=== PATIENT | male | born 1970 | race African-American/Black ===

== ENCOUNTER 2017-10-15 14:58 | Emergency (ER) | payer OTHER ==
[2017-10-15] MEDS: IBUPROFEN 800 MG TABLET. PO ×2 (15:45)
== END 2017-10-15 16:18 | disposition home or self-care (01) ==
LOC: ER 14:58
DX: S52.202A Unspecified fracture of shaft of left ulna, initial encounter for closed fracture (principal); W19.XXXA Unspecified fall, initial encounter; Y93.61 Activity, american tackle football; Y92.321 Football field as the place of occurrence of the external cause; Y99.8 Other external cause status
CPT/HCPCS: 29125; 73090; 73110; 99284-25

== ENCOUNTER 2019-01-28 10:21 | Inpatient (IN) | payer OTHER, SELFPAY ==
[~2019-01-28] VITALS: Ht 182.9 cm; Wt 78.0 kg
[2019-01-28] VITALS (7 sets, daily range): BP systolic 110–129; BP diastolic 44–76
[~2019-01-28 10:21] MED LIST: HYDR-3164 PO
[2019-01-28] MEDS ORDERED: DIPHTH,PERTUSS(ACELL),TET TOX 0.5 ML DISP.SYRIN. VAX IM ONE (11:15)
--- NOTE | 2019-01-28 11:34 | RAD ---
2 views left tibia-fibula dated 01/28/2019. No comparison available. CLINICAL INDICATION: Pain after nail gun injury. FINDINGS: 2 views left tibia fibula show a 7.2 cm nail embedded within the distal one third shaft of the tibia. One of the stabilizing brads is fractured from the proximal end of the nail and displaced medially into the soft tissues. Distal fibula is intact. No displaced fracture. Impression: 7 cm nail embedded in the distal tibial shaft as described above. Electronically signed by: Evens Archer MD (01/28/2019 11:31 AM) [facility]
[2019-01-28] MEDS ORDERED: ONDANSETRON PF 4 MG/2 ML VIAL. IV PRN ×3 (12:45→18:15)
[2019-01-28] MEDS ORDERED: PIPERACILLIN/TAZOBACTAM 3.375 GM in IV NORMAL SALINE 50ML 50 ML IV ONE (13:00)
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
[2019-01-28] MEDS ORDERED: IV RINGERS,LACTATED 1000ML 1,000 ML IV SCH (13:05)
[2019-01-28] MEDS: MORPHINE SULFATE 4 MG/ML VIAL. IV PRN ×2 (13:09→15:09)
[2019-01-28] MEDS ORDERED: MORPHINE SULFATE 2 MG/ML VIAL. IV PRN ×2 (13:15→18:15)
[2019-01-28] MEDS ORDERED: fentaNYL PF VIAL 100 MCG/2 ML VIAL IV PRN ×3 (13:15→18:15)
[2019-01-28] MEDS ORDERED: HYDROmorphone 2 MG/ML VIAL IV PRN (13:15)
[2019-01-28] MEDS ORDERED: PROCHLORPERAZINE 10 MG/2 ML VIAL. IV PRN (13:15)
[2019-01-28 13:16] LABS: BASO # 0.1 x10^3/uL (0.0-0.2); BASO % 1 % (0-3); EOS # 0.2 x10^3/uL (0.0-0.7); EOS % 3 % (0-3); HEMATOCRIT 48.5 % (39.0-53.0); HEMOGLOBIN 16.3 g/dL (13.0-17.5); LYMPH # 1.6 x10^3/uL (1.0-4.8); LYMPH % 27 % (24-48); MEAN CORPUSCULAR HEMOGLOBIN 32 pg (25-35); MEAN CORPUSCULAR HGB CONC 34 g/dL (31-37); MEAN CORPUSCULAR VOLUME 95 fL (79-100); MONO # 0.6 x10^3/uL (0.0-1.1); MONO % 11 % (0-9); NEUT # 3.3 x10^3uL (1.8-7.7); NEUT % 58 % (31-73); PLATELET COUNT 226 x10^3/uL (140-400); RED BLOOD COUNT 5.11 x10^6/uL (4.30-5.70); RED CELL DISTRIBUTION WIDTH 13.8 % (11.5-14.5); WHITE BLOOD COUNT 5.8 x10^3/uL (4.0-11.0)
[2019-01-28 13:28] LABS: CALCIUM 9.3 mg/dL (8.5-10.1); CREATININE 1.2 mg/dL (0.7-1.3); GFR 77.2
[2019-01-28 13:31] LABS: PROTHROMBIN TIME PATIENT 12.5 SEC (11.7-14.0)
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
[2019-01-28] MEDS ORDERED: BUPIVACAINE-EPI 0.25%-1:200000 MPF 30 ML VIAL. ONE (16:33)
[2019-01-28] MEDS ORDERED: fentaNYL PF VIAL 100 MCG/2 ML VIAL ONE ×2 (16:42→18:08)
[2019-01-28] MEDS ORDERED: PROPOFOL 20 ML IV ONE (16:43)
[2019-01-28] MEDS ORDERED: ONDANSETRON PF 4 MG/2 ML VIAL. ONE (16:43)
[2019-01-28] MEDS ORDERED: MIDAZOLAM HCL/PF 2 MG/2 ML VIAL. ONE (16:43)
[2019-01-28] MEDS ORDERED: LIDOCAINE 2% PF 5 ML VIAL. ONE (16:43)
[2019-01-28] MEDS ORDERED: DEXAMETHASONE SOD PHOS 4 MG/ML VIAL ONE (16:43)
[2019-01-28] MEDS ORDERED: ceFAZolin 1GM IVPB FOR OMNI 100 ML IV ONE (16:51)
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
--- NOTE | 2019-01-28 18:08 | PDOC4 ---
Operative Note Operative Note Date of Procedure: January 28, 2019 Pre-Op Diagnosis: Puncture wound with foreign body, left lower leg, initial encounter S81.842A Contact with nail gun, initial encounter, W29.4XXA Unspecified fracture of shaft of left tibia, initial encounter for open fracture, type 1, S82.202B Post-Op Diagnosis: Puncture wound with foreign body, left lower leg, initial encounter S81.842A Unspecified fracture of shaft of left tibia, initial encounter for open fracture, type 1, S82.202B Contact with nail gun, initial encounter, W29.4XXA Procedure: Removal of foreign body, deep, lower leg, CPT 72391 Debridement including removal of foreign material at the site of an open fracture, excisional debridement skin and subcutaneous tissues, CPT 00122 Surgeon: Sally Estevez MD Anesthesia: General EBL: 5 mL Specimens Obtained: none Complications: none Drains: none Tourniquet time: 17 minutes Indications for Procedure: The patient is a 49-year-old man who injured his leg with a nail gun. The nail is deeply embedded in the lower leg, and is no longer visible but there puncture wounds at the entrance and at the tip of the nail where it briefly exited the skin and then retracted beneath the skin. The patient and I discussed the risks, benefits and alternatives of surgery. Procedure in Detail: The patient was identified in the preoperative holding area. The patient was taken to the operating room where general anesthesia was used. The patient was positioned supine on the operating table. Preoperative antibiotics were given intravenously, 2 g of Ancef. He previously received tetanus prophylaxis. A timeout procedure was performed. A tourniquet was applied to the upper limb. The limb was prepared in sterile fashion with surgical prep solution. Sterile drapes were applied. An Esmarch bandage was used to exsanguinate the limb and the tourniquet was inflated to 350 mmHg. The exit wound on the injured tibia was addressed first. A 3 cm longitudinal incision was made. The tibialis anterior tendon was gently retracted. The tip of the nail was palpable and exposed with a hemostat. Betadine was used for the initial lavage, and I lavaged the nail head and the tibia where it is fractured. I then used the [employer] interpulse petrologist and irrigated saline copiously. Next the leg was rolled internally, and the posterior entrance wound was noted. This is along the lateral aspect of the gastrocnemius muscle at the musculotendinous junction. A 6 cm longitudinal incision was made incorporating the puncture wound. Careful dissection was used. The sural nerve was 2 mm from the nail head. I needed to retract the nerve carefully with a Weitlaner retractor, in order to remove the nail. Again I used Betadine lavage followed by the Jasmin interpulse petrologist. I then used a vise geophysical laboratory chief and slap hammer under direct vision, grasped the tip of the nail, and removed it with the slap hammer without difficulty. I then again lavaged the anterior and posterior incisions with Betadine and then followed with the [place] interpulse petrologist and saline. The additional dissection required to remove the single small yolanda remaining deep in the tissues does not seem worthwhile because of the risk of nerve or artery injury with that additional dissection. I did excisional debridement along the edges of entrance and exit wounds of the skin and subcutaneous tissue. After final irrigation, I closed the incisions loosely with a single 2-0 Vicryl suture in the posterior incision. The skin was loosely reapproximated anteriorly and posteriorly with 3-0 Prolene interrupted simple sutures. Bupivacaine 0.25% with epinephrine was injected into the skin edges. Xeroform and sterile dressings were applied. The tourniquet was released. There were no apparent complications. The patient returned to the recovery room in stable condition. I recommend a Cam Walker and limited activity to prevent complete fracture of the tibia. He may weight-bear in the Cam Walker but should use it for 4-6 weeks. SALLY ESTEVEZ MD January 28, 2019 18:08
[2019-01-28] MEDS ORDERED: POLYETHYLENE GLYCOL 3350 17 GM PACKET. PO PRN (18:15)
[2019-01-28] MEDS ORDERED: oxyCODONE/APAP 5/325 1 TAB TABLET PO PRN ×2 (18:15→18:30)
[2019-01-28] MEDS ORDERED: DEXTROSE 50% 25 GM / 50ML DISP.SYRIN. IV PRN (18:15)
[2019-01-28] MEDS ORDERED: MORPHINE SULFATE 4 MG/ML VIAL. IV PRN (18:15)
[2019-01-28] MEDS ORDERED: oxyCODONE IR 5 MG TABLET PO PRN (18:15)
[2019-01-28] MEDS ORDERED: HYDROcodone/APAP 7.5/325MG 1 TAB TABLET PO PRN ×2 (18:15)
[2019-01-28] MEDS: IV 1/2 NORMAL SALINE 1,000 ML IV SCH (18:30)
[2019-01-29 03:22] VITALS: BP 103/66
[2019-01-29] MEDS ORDERED: MAGNESIUM HYDROXIDE 2,400 MG/30 ML ORAL.SUSP. PO PRN (06:00)
[2019-01-29 07:00] VITALS: BP 113/72
[2019-01-29 07:18] LABS: BASO # 0.1 x10^3/uL (0.0-0.2); BASO % 1 % (0-3); EOS % 0 % (0-3); HEMATOCRIT 48.6 % (39.0-53.0); HEMOGLOBIN 16.4 g/dL (13.0-17.5); LYMPH # 1.7 x10^3/uL (1.0-4.8); LYMPH % 17 % (24-48); MEAN CORPUSCULAR HEMOGLOBIN 32 pg (25-35); MEAN CORPUSCULAR HGB CONC 34 g/dL (31-37); MEAN CORPUSCULAR VOLUME 96 fL (79-100); MONO # 0.9 x10^3/uL (0.0-1.1); MONO % 9 % (0-9); NEUT # 7.4 x10^3uL (1.8-7.7); NEUT % 73 % (31-73); PLATELET COUNT 226 x10^3/uL (140-400); RED BLOOD COUNT 5.06 x10^6/uL (4.30-5.70)
[2019-01-29 07:37] LABS: CALCIUM 8.8 mg/dL (8.5-10.1); CREATININE 1.2 mg/dL (0.7-1.3); GFR 77.2; POTASSIUM 4.1 mmol/L (3.5-5.1)
[2019-01-29] MEDS: IV 1/2 NORMAL SALINE 1,000 ML IV SCH (07:47)
[2019-01-29] MEDS ORDERED: ASPIRIN 325 MG TABLET PO SCH (08:00)
--- NOTE | 2019-01-29 08:49 | PDOC ---
PROGRESS NOTES Chief Complaint Chief Complaint Puncture wound of left leg - s/p tetanus vaccine, would recommend coverage for strep and staph for 5-7 days, pain control as well. 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 To OR 01/28/[address] Estevez to have 7cm nail removed from distal shaft of left femur. Vitals Vitals Vital Signs Date Time Temp Pulse Resp B/P (MAP) Pulse Ox O2 Delivery O2 Flow Rate FiO2 01/29/19 08:16 Room Air 01/29/19 07:00 97.7 63 18 113/72 (86) 97 97.7 Physical Exam General: Alert, Cooperative Heart: Regular rate Abdomen: Soft Extremities: Other (He has a small puncture wound posteriorly that is the entrance wound, about the size of the head of the nail, and an even smaller puncture wound anteriorly, both of which have trace bleeding but there is no visible nail at this time. He does not report any tingling numbness or loss of function distally, his only complaint is some muscle tightness when he tries to move his ankle. He has an intact dorsalis pedis pulse. The light touch sensation is intact. He can dorsiflex and plantarflex the foot slightly, with no evidence of compartment syndrome or of significant neurovascular injury. There is no pulsatile bleeding. There is trace amount of bleeding from the anterior wound on the distal tibia, and from the posterior wound, along the lateral aspect of the gastrocsoleus. There is no compartment syndrome.) Labs LABS Laboratory Tests Test 01/28/19 13:01 01/29/19 06:35 White Blood Count 5.8 x10^3/uL (4.0-11.0) 10.0 x10^3/uL (4.0-11.0) Red Blood Count 5.11 x10^6/uL (4.30-5.70) 5.06 x10^6/uL (4.30-5.70) Hemoglobin 16.3 g/dL (13.0-17.5) 16.4 g/dL (13.0-17.5) Hematocrit 48.5 % (39.0-53.0) 48.6 % (39.0-53.0) Mean Corpuscular Volume 95 fL (79-100) 96 fL (79-100) Mean Corpuscular Hemoglobin 32 pg (25-35) 32 pg (25-35) Mean Corpuscular Hemoglobin Concent 34 g/dL (31-37) 34 g/dL (31-37) Red Cell Distribution Width 13.8 % (11.5-14.5) 14.0 % (11.5-14.5) Platelet Count 226 x10^3/uL (140-400) 226 x10^3/uL (140-400) Neutrophils (%) (Auto) 58 % (31-73) 73 % (31-73) Lymphocytes (%) (Auto) 27 % (24-48) 17 % (24-48) Monocytes (%) (Auto) 11 % (0-9) 9 % (0-9) Eosinophils (%) (Auto) 3 % (0-3) 0 % (0-3) Basophils (%) (Auto) 1 % (0-3) 1 % (0-3) Neutrophils # (Auto) 3.3 x10^3uL (1.8-7.7) 7.4 x10^3uL (1.8-7.7) Lymphocytes # (Auto) 1.6 x10^3/uL (1.0-4.8) 1.7 x10^3/uL (1.0-4.8) Monocytes # (Auto) 0.6 x10^3/uL (0.0-1.1) 0.9 x10^3/uL (0.0-1.1) Eosinophils # (Auto) 0.2 x10^3/uL (0.0-0.7) 0.0 x10^3/uL (0.0-0.7) Basophils # (Auto) 0.1 x10^3/uL (0.0-0.2) 0.1 x10^3/uL (0.0-0.2) Prothrombin Time 12.5 SEC (11.7-14.0) Prothromb Time International Ratio 1.0 (0.8-1.1) Activated Partial Thromboplast Time 25 SEC (24-38) Sodium Level 141 mmol/L (136-145) 137 mmol/L (136-145) Potassium Level 5.0 mmol/L (3.5-5.1) 4.1 mmol/L (3.5-5.1) Chloride Level 104 mmol/L (98-107) 101 mmol/L (98-107) Carbon Dioxide Level 28 mmol/L (21-32) 27 mmol/L (21-32) Anion Gap 9 (6-14) 9 (6-14) Blood Urea Nitrogen 13 mg/dL (8-26) 10 mg/dL (8-26) Creatinine 1.2 mg/dL (0.7-1.3) 1.2 mg/dL (0.7-1.3) Estimated GFR (Cockcroft-Gault) 77.2 77.2 Glucose Level 99 mg/dL (70-99) 105 mg/dL (70-99) Calcium Level 9.3 mg/dL (8.5-10.1) 8.8 mg/dL (8.5-10.1) Assessment and Plan Assessmemt and Plan Problems Medical Problems: (1) Left tibial fracture Status: Acute (2) Puncture wound of left lower leg Status: Acute Comment Review of Relevant I have reviewed the following items deisi (where applicable) has been applied. Labs Laboratory Tests Test 01/28/19 13:01 01/29/19 06:35 White Blood Count 5.8 x10^3/uL (4.0-11.0) 10.0 x10^3/uL (4.0-11.0) Red Blood Count 5.11 x10^6/uL (4.30-5.70) 5.06 x10^6/uL (4.30-5.70) Hemoglobin 16.3 g/dL (13.0-17.5) 16.4 g/dL (13.0-17.5) Hematocrit 48.5 % (39.0-53.0) 48.6 % (39.0-53.0) Mean Corpuscular Volume 95 fL (79-100) 96 fL (79-100) Mean Corpuscular Hemoglobin 32 pg (25-35) 32 pg (25-35) Mean Corpuscular Hemoglobin Concent 34 g/dL (31-37) 34 g/dL (31-37) Red Cell Distribution Width 13.8 % (11.5-14.5) 14.0 % (11.5-14.5) Platelet Count 226 x10^3/uL (140-400) 226 x10^3/uL (140-400) Neutrophils (%) (Auto) 58 % (31-73) 73 % (31-73) Lymphocytes (%) (Auto) 27 % (24-48) 17 % (24-48) Monocytes (%) (Auto) 11 % (0-9) 9 % (0-9) Eosinophils (%) (Auto) 3 % (0-3) 0 % (0-3) Basophils (%) (Auto) 1 % (0-3) 1 % (0-3) Neutrophils # (Auto) 3.3 x10^3uL (1.8-7.7) 7.4 x10^3uL (1.8-7.7) Lymphocytes # (Auto) 1.6 x10^3/uL (1.0-4.8) 1.7 x10^3/uL (1.0-4.8) Monocytes # (Auto) 0.6 x10^3/uL (0.0-1.1) 0.9 x10^3/uL (0.0-1.1) Eosinophils # (Auto) 0.2 x10^3/uL (0.0-0.7) 0.0 x10^3/uL (0.0-0.7) Basophils # (Auto) 0.1 x10^3/uL (0.0-0.2) 0.1 x10^3/uL (0.0-0.2) Prothrombin Time 12.5 SEC (11.7-14.0) Prothromb Time International Ratio 1.0 (0.8-1.1) Activated Partial Thromboplast Time 25 SEC (24-38) Sodium Level 141 mmol/L (136-145) 137 mmol/L (136-145) Potassium Level 5.0 mmol/L (3.5-5.1) 4.1 mmol/L (3.5-5.1) Chloride Level 104 mmol/L (98-107) 101 mmol/L (98-107) Carbon Dioxide Level 28 mmol/L (21-32) 27 mmol/L (21-32) Anion Gap 9 (6-14) 9 (6-14) Blood Urea Nitrogen 13 mg/dL (8-26) 10 mg/dL (8-26) Creatinine 1.2 mg/dL (0.7-1.3) 1.2 mg/dL (0.7-1.3) Estimated GFR (Cockcroft-Gault) 77.2 77.2 Glucose Level 99 mg/dL (70-99) 105 mg/dL (70-99) Calcium Level 9.3 mg/dL (8.5-10.1) 8.8 mg/dL (8.5-10.1) Laboratory Tests Test 01/28/19 13:01 01/29/19 06:35 White Blood Count 5.8 x10^3/uL (4.0-11.0) 10.0 x10^3/uL (4.0-11.0) Red Blood Count 5.11 x10^6/uL (4.30-5.70) 5.06 x10^6/uL (4.30-5.70) Hemoglobin 16.3 g/dL (13.0-17.5) 16.4 g/dL (13.0-17.5) Hematocrit 48.5 % (39.0-53.0) 48.6 % (39.0-53.0) Mean Corpuscular Volume 95 fL (79-100) 96 fL (79-100) Mean Corpuscular Hemoglobin 32 pg (25-35) 32 pg (25-35) Mean Corpuscular Hemoglobin Concent 34 g/dL (31-37) 34 g/dL (31-37) Red Cell Distribution Width 13.8 % (11.5-14.5) 14.0 % (11.5-14.5) Platelet Count 226 x10^3/uL (140-400) 226 x10^3/uL (140-400) Neutrophils (%) (Auto) 58 % (31-73) 73 % (31-73) Lymphocytes (%) (Auto) 27 % (24-48) 17 % (24-48) Monocytes (%) (Auto) 11 % (0-9) 9 % (0-9) Eosinophils (%) (Auto) 3 % (0-3) 0 % (0-3) Basophils (%) (Auto) 1 % (0-3) 1 % (0-3) Neutrophils # (Auto) 3.3 x10^3uL (1.8-7.7) 7.4 x10^3uL (1.8-7.7) Lymphocytes # (Auto) 1.6 x10^3/uL (1.0-4.8) 1.7 x10^3/uL (1.0-4.8) Monocytes # (Auto) 0.6 x10^3/uL (0.0-1.1) 0.9 x10^3/uL (0.0-1.1) Eosinophils # (Auto) 0.2 x10^3/uL (0.0-0.7) 0.0 x10^3/uL (0.0-0.7) Basophils # (Auto) 0.1 x10^3/uL (0.0-0.2) 0.1 x10^3/uL (0.0-0.2) Prothrombin Time 12.5 SEC (11.7-14.0) Prothromb Time International Ratio 1.0 (0.8-1.1) Activated Partial Thromboplast Time 25 SEC (24-38) Sodium Level 141 mmol/L (136-145) 137 mmol/L (136-145) Potassium Level 5.0 mmol/L (3.5-5.1) 4.1 mmol/L (3.5-5.1) Chloride Level 104 mmol/L (98-107) 101 mmol/L (98-107) Carbon Dioxide Level 28 mmol/L (21-32) 27 mmol/L (21-32) Anion Gap 9 (6-14) 9 (6-14) Blood Urea Nitrogen 13 mg/dL (8-26) 10 mg/dL (8-26) Creatinine 1.2 mg/dL (0.7-1.3) 1.2 mg/dL (0.7-1.3) Estimated GFR (Cockcroft-Gault) 77.2 77.2 Glucose Level 99 mg/dL (70-99) 105 mg/dL (70-99) Calcium Level 9.3 mg/dL (8.5-10.1) 8.8 mg/dL (8.5-10.1) Medications Current Medications Diphtheria/ Tetanus/Acell Pertussis (Boostrix) 0.5 ml ONCE ONCE VAX IM Last administered on 01/28/19at 11:35; Start 01/28/19 at 11:15; Stop 01/28/19 at 11:16; Status DC Piperacillin Sod/ Tazobactam Sod 3.375 gm/Sodium Chloride 50 ml @ 100 mls/hr 1X ONCE IV Last administered on 01/28/19at 13:10; Start 01/28/19 at 13:00; Stop 01/28/19 at 13:29; Status DC Ondansetron HCl (Zofran) 4 mg PRN Q8HRS PRN IV NAUSEA/VOMITING Last administered on 01/28/19at 13:09; Start 01/28/19 at 12:45; Stop 01/29/19 at 12:44 Morphine Sulfate (Morphine Sulfate) 4 mg PRN Q2HR PRN IV PAIN Last administered on 01/28/19at 15:09; Start 01/28/19 at 12:45; Stop 01/29/19 at 12:44 Ondansetron HCl (Zofran) 4 mg PRN Q6HRS PRN IV NAUSEA/VOMITING; Start 01/28/19 at 13:15; Stop 01/29/19 at 13:14 Fentanyl Citrate (Fentanyl 2ml Vial) 25 mcg PRN Q5MIN PRN IV MILD PAIN 1-3; Start 01/28/19 at 13:15; Stop 01/29/19 at 13:14 Fentanyl Citrate (Fentanyl 2ml Vial) 50 mcg PRN Q5MIN PRN IV MODERATE TO SEVERE PAIN Last administered on 01/28/19at 18:10; Start 01/28/19 at 13:15; Stop 01/29/19 at 13:14 Morphine Sulfate (Morphine Sulfate) 1 mg PRN Q10MIN PRN IV SEVERE PAIN 7-10; Start 01/28/19 at 13:15; Stop 01/29/19 at 13:14 Ringer's Solution 1,000 ml @ 30 mls/hr Q24H IV Last administered on 01/28/19at 16:00; Start 01/28/19 at 13:05; Stop 01/29/19 at 01:04; Status DC Hydromorphone HCl (Dilaudid) 0.5 mg PRN Q10MIN PRN IV SEV PAIN, Second choice; Start 01/28/19 at 13:15; Stop 01/29/19 at 13:14 Prochlorperazine Edisylate (Compazine) 5 mg PACU PRN PRN IV NAUSEA, MRX1; Start 01/28/19 at 13:15; Stop 01/29/19 at 13:14 Fentanyl Citrate (Fentanyl 2ml Vial) 100 mcg STK-MED ONCE .ROUTE ; Start 01/28/19 at 16:42; Stop 01/28/19 at 16:43; Status DC Midazolam HCl (Versed) 2 mg STK-MED ONCE .ROUTE ; Start 01/28/19 at 16:43; Stop 01/28/19 at 16:44; Status DC Propofol 20 ml @ As Directed STK-MED ONCE IV ; Start 01/28/19 at 16:43; Stop 01/28/19 at 16:44; Status DC Lidocaine HCl (Lidocaine Pf 2% Vial) 5 ml STK-MED ONCE .ROUTE ; Start 01/28/19 at 16:43; Stop 01/28/19 at 16:44; Status DC Ondansetron HCl (Zofran) 4 mg STK-MED ONCE .ROUTE ; Start 01/28/19 at 16:43; Stop 01/28/19 at 16:44; Status DC Dexamethasone Sodium Phosphate (Decadron) 4 mg STK-MED ONCE .ROUTE ; Start 01/28/19 at 16:43; Stop 01/28/19 at 16:44; Status DC Cefazolin Sodium 100 ml @ As Directed STK-MED ONCE IV ; Start 01/28/19 at 16:51; Stop 01/28/19 at 16:52; Status DC Bupivacaine HCl/ Epinephrine Bitart (Sensorcaine-Epi 0.25%-1:[id number] Mpf) 30 ml STK-MED ONCE .ROUTE Last administered on 01/28/19at 17:30; Start 01/28/19 at 16:33; Stop 01/28/19 at 17:33; Status DC Enoxaparin Sodium (Lovenox 40mg Syringe) 40 mg Q24H SQ Last administered on 01/29/19at 08:16; Start 01/29/19 at 09:00 Fentanyl Citrate (Fentanyl 2ml Vial) 100 mcg STK-MED ONCE .ROUTE ; Start 01/28/19 at 18:08; Stop 01/28/19 at 18:09; Status DC Oxycodone HCl (Roxicodone) 5 mg PRN Q3HRS PRN PO MILD PAIN 2ND CHOICE; Start 01/28/19 at 18:15 Morphine Sulfate (Morphine Sulfate) 2 mg PRN Q1HR PRN IV PAIN; Start 01/28/19 at 18:15 Fentanyl Citrate (Fentanyl 2ml Vial) 25 mcg PRN Q1HR PRN IV PAIN; Start 01/28/19 at 18:15 Multivitamins (Thera M Plus) 1 tab DAILY PO Last administered on 01/29/19at 08:15; Start 01/29/19 at 09:00 Senna/Docusate Sodium (Senna Plus) 1 tab DAILY PO Last administered on 01/29/19at 08:15; Start 01/29/19 at 09:00 Polyethylene Glycol (miraLAX PACKET) 17 gm PRN DAILY PRN PO CONSTIPATION; Start 01/28/19 at 18:15 Vitamin D (Vitamin D3) 1,000 unit DAILY PO Last administered on 01/29/19at 08:15; Start 01/29/19 at 09:00 Sodium Chloride 1,000 ml @ 75 mls/hr [id number] IV ; Start 01/28/19 at 18:30 Ondansetron HCl (Zofran) 4 mg PRN Q4HRS PRN IV NAUSEA/VOMITING; Start 01/28/19 at 18:15 Aspirin (Eduardo Aspirin) 325 mg [id number] PO Last administered on 01/29/19at 08:15; Start 01/29/19 at 08:00 Magnesium Hydroxide (Milk Of Magnesia) 2,400 mg 1X PRN PRN PO CONSTIPATION; Start 01/29/19 at 06:00; Stop 01/30/19 at 05:59 Bisacodyl (Dulcolax Supp) 10 mg 1X PRN PRN CO CONSTIPATION; Start 01/29/19 at 16:00; Stop 01/30/19 at 15:59 Acetaminophen/ Hydrocodone Bitart (Lortab 7.5/325) 1 tab PRN Q4HRS PRN PO PAIN Last administered on 01/29/19at 08:16; Start 01/28/19 at 18:15 Morphine Sulfate (Morphine Sulfate) 4 mg PRN Q2HR PRN IV PAIN; Start 01/28/19 at 18:15 Acetaminophen/ Hydrocodone Bitart (Lortab 7.5/325) 2 tab PRN Q4HRS PRN PO PAIN; Start 01/28/19 at 18:15 Dextrose (Dextrose 50%-Water Syringe) 12.5 gm PRN Q15MIN PRN IV SEE COMMENTS; Start 01/28/19 at 18:15 Cefazolin Sodium/ Dextrose 50 ml @ 100 mls/hr Q6H IV Last administered on 01/29/19at 05:20; Start 01/28/19 at 23:00; Stop 01/29/19 at 11:29 Oxycodone/ Acetaminophen (Percocet 5/325) 1 tab PRN Q4HRS PRN PO MILD PAIN 1ST CHOICE; Start 01/28/19 at 18:15 Oxycodone/ Acetaminophen (Percocet 5/325) 2 tab PRN Q4HRS PRN PO MOD-SEV PAIN 1ST CHOICE; Start 01/28/19 at 18:30 Active Scripts Active [place] 5-325 Tablet (Acetaminophen/Hydrocodone Bitart) 1 Each Tablet 1 Tab PO TID Vitals/I & O Vital Sign - Last 24 Hours 01/28/19 01/28/19 01/28/19 01/28/19 10:44 13:09 13:12 13:39 Temp 97.5 97.5 Pulse 69 Resp 16 16 16 B/P (MAP) 125/71 (89) 124/73 (90) Pulse Ox 98 95 O2 Delivery Room Air Room Air Room Air 01/28/19 01/28/19 01/28/19 01/28/19 13:42 14:09 15:00 15:09 Temp 98.1 98.1 Pulse 48 58 52 Resp 16 B/P (MAP) 97/63 (74) 121/61 (81) 114/69 (84) Pulse Ox 96 100 99 97 O2 Delivery Room Air Room Air Room Air Room Air 01/28/19 01/28/19 01/28/19 01/28/19 15:45 16:00 17:45 18:00 Temp 98.1 97.3 97.3 98.1 97.3 97.3 Pulse 57 60 51 Resp 15 15 15 B/P (MAP) 117/65 115/42 115/64 Pulse Ox 97 97 100 100 O2 Delivery Room Air Room Air Room Air Room Air 01/28/19 01/28/19 01/28/19 01/28/19 18:01 18:10 18:15 19:00 Temp 97.3 97.3 Pulse 52 Resp 15 15 B/P (MAP) 107/40 Pulse Ox 100 94 94 O2 Delivery Room Air Room Air Room Air Room Air 01/28/19 01/28/19 01/28/19 01/28/19 19:00 19:15 19:45 20:00 Temp 98.1 98.1 98.1 98.1 98.1 98.1 Pulse 54 56 58 Resp 18 18 18 B/P (MAP) 110/76 (87) 129/66 (87) 115/73 (87) Pulse Ox 98 98 99 O2 Delivery Room Air Room Air Room Air Room Air 01/28/19 01/28/19 01/28/19 01/29/19 20:35 21:05 23:36 03:22 Temp 97.6 98.1 98.1 98.7 97.6 98.1 98.1 98.7 Pulse 18 53 63 47 Resp 18 18 18 18 B/P (MAP) 114/60 (78) 119/44 (69) 111/64 (80) 103/66 (78) Pulse Ox 97 96 100 99 O2 Delivery Room Air Room Air Room Air Room Air 01/29/19 01/29/19 07:00 08:16 Temp 97.7 97.7 Pulse 63 Resp 18 B/P (MAP) 113/72 (86) Pulse Ox 97 O2 Delivery Room Air Room Air Intake and Output 01/28/19 01/28/19 01/29/19 15:00 23:00 07:00 Intake Total 50 ml 550 ml 300 ml Output Total 5 ml 350 ml Balance 50 ml 545 ml -50 ml SIMON AVILA MD January 29, 2019 08:49
[2019-01-29] MEDS ORDERED: SENNOSIDES/DOCUSATE 8.6/50MG TABLET. PO SCH (09:00)
[2019-01-29] MEDS ORDERED: SMZ/TMP 800/160MG TABLET. PO SCH (09:00)
[2019-01-29] MEDS ORDERED: CHOLECALCIFEROL (VITAMIN D3) 1,000 UNIT TABLET PO SCH (09:00)
[2019-01-29] MEDS ORDERED: CEPHALEXIN 250 MG CAPSULE. PO SCH (09:00)
[2019-01-29] MEDS ORDERED: MULTIVITAMIN with MINERAL TABLET. PO SCH (09:00)
[2019-01-29] MEDS ORDERED: ENOXAPARIN 40 MG/0.4 ML SYRINGE. SQ SCH (09:00)
[2019-01-29] MEDS ORDERED: SULF-143 PO (10:45)
[2019-01-29] MEDS ORDERED: ASPI325T8 PO (10:45)
[2019-01-29] MEDS ORDERED: CEPH250C PO (10:45)
[2019-01-29] MEDS ORDERED: OXYC1TAB15 PO (10:45)
[2019-01-29 11:00] VITALS: BP 104/58
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
--- NOTE | 2019-01-29 14:02 | NUR ---
SW following for discharge planning. 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 Pt wants to discharge home today. SW met with pt to give self pay resources, pt denied any further SW needs.
[2019-01-29] MEDS ORDERED: BISACODYL 10 MG SUPP.RECT. PR PRN (16:00)
--- NOTE | 2019-01-29 18:30 | NUR ---
Pt discharged home with no additional services, by w/c to hospital entrance, friend awaiting in personal vehicle. Education and information regarding Dx provided to Pt who verbalized understanding and had no further questions. Pt provided with CAM boot and crutches, ambulated with PT prior to discharge, able to do so safely. Work excuse x 2 weeks provided to Pt. No other changes from previous assessment.
[2019-01-29] MEDS ORDERED: LACTOBACILLUS RHAMNOSUS GG 1 CAPSULE. PO SCH (21:00)
== END 2019-01-29 18:59 | disposition home or self-care (01) | DRG 465 ==
LOC: ER 10:21 → 4 NORTH 12:23
PROVIDERS: ADMIT Family Medicine; ATTEND Family Medicine
PROC: 0KCT0ZZ Extirpation of Matter from Left Lower Leg Muscle, Open Approach (ICD-10-PCS; 2019-01-28)
PROC: 0JBP0ZZ Excision of Left Lower Leg Subcutaneous Tissue and Fascia, Open Approach (ICD-10-PCS; principal; 2019-01-28 17:00)
DX: S82.202B Unspecified fracture of shaft of left tibia, initial encounter for open fracture type I or II (principal); S81.842A Puncture wound with foreign body, left lower leg, initial encounter; F17.210 Nicotine dependence, cigarettes, uncomplicated; I10 Essential (primary) hypertension; W34.00XA Accidental discharge from unspecified firearms or gun, initial encounter; W45.0XXA Nail entering through skin, initial encounter; W29.4XXA Contact with nail gun, initial encounter; X58.XXXA Exposure to other specified factors, initial encounter; Z82.49 Family history of ischemic heart disease and other diseases of the circulatory system; Y93.89 Activity, other specified; Y92.89 Other specified places as the place of occurrence of the external cause; Y99.8 Other external cause status
CPT/HCPCS: 36415; 73590; 80048; 85025; 85610; 85730; 90471; 90715; 96365; 96375; J0690; J0696; J1100; J1650; J2001; J2250; J2270; J2405; J2543; J2704; J3010; J7120; 99285-25; A4461

== ENCOUNTER 2019-03-11 11:09 | Emergency (ER) | payer SELFPAY ==
[~2019-03-11] VITALS: Ht 182.9 cm; Wt 76.2 kg
[~2019-03-11 11:09] MED LIST changes: +ASPI325T8 PO; +CEPH250C PO; +OXYC1TAB15 PO; +SULF-143 PO
[2019-03-11 12:09] VITALS: BP 125/75
--- NOTE | 2019-03-11 12:27 | RAD ---
Examination: ANKLE LEFT 3V History: Twisted the ankle. Pain. Surgery to remove a nail 1 month ago. Comparison/Correlation: 02/15/2019 left ankle x-ray exam Findings: Total 3 images of the left ankle were obtained. Small calcaneal spur is present. Curvilinear density is present at the distal tibial shaft level similar to prior exam. Additional punctate density also seen. Fracture involving the distal tibial shaft medially is evident minimal displacement of fracture fragment. Fracture involves the cortex. Mild associated soft tissue swelling noted. Lucency related previous needle removal at this level is also seen. Oblique fracture which is nondisplaced involving the distal tibial metaphysis anteriorly is noted. Ankle joint mortise is unremarkable. Fibula is unremarkable. Minimal spurring about the distal tibia and the calcaneus noted. Impression: Distal tibial cortical minimally displaced fracture is present. Nondisplaced distal tibial metaphyseal fracture. Electronically signed by: Grant Restrepo MD (03/11/2019 12:25 PM) [id number]
[2019-03-11] MEDS ORDERED: HYDR-3164 PO (13:09)
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
== END 2019-03-11 13:12 | disposition home or self-care (01) ==
LOC: ER 11:09
DX: S82.392A Other fracture of lower end of left tibia, initial encounter for closed fracture (principal); W01.0XXA Fall on same level from slipping, tripping and stumbling without subsequent striking against object, initial encounter; Y93.89 Activity, other specified; Y92.89 Other specified places as the place of occurrence of the external cause; Y99.8 Other external cause status
CPT/HCPCS: 73610; 99284